=== PATIENT | female | born 1990 | race Caucasian/White ===

== ENCOUNTER 2022-02-08 05:46 | Inpatient (IN) | payer OTHER ==
[~2022-02-08] VITALS: Ht 172.7 cm; Wt 99.8 kg
[~2022-02-08 05:46] MED LIST: FEOSOL325 MG PO
[2022-02-08 06:50] LABS: HEMOGLOBIN 11.8 gm/dl (12.3-15.3); RED BLOOD COUNT 3.76 M/UL (4.00-5.10); WHITE BLOOD COUNT 11.8 K/UL (4.5-11.0)
[2022-02-08] MEDS ORDERED: IBUPROFEN600 MG PO (13:24)
[2022-02-08] MEDS ORDERED: COLACE 100MG C100 MG PO (13:24)
[2022-02-09 05:46] LABS: HEMOGLOBIN 10.7 gm/dl (12.3-15.3)
== END 2022-02-09 16:12 | disposition home or self-care (01) | DRG 807 ==
LOC: OB 05:46
PROVIDERS: Obstetrics & Gynecology; ADMIT Obstetrics & Gynecology
PROC: 10E0XZZ Delivery of Products of Conception, External Approach (ICD-10-PCS; principal; 2022-02-08)
PROC: 0HQ9XZZ Repair Perineum Skin, External Approach (ICD-10-PCS; 2022-02-08)
PROC: 4A1HXCZ Monitoring of Products of Conception, Cardiac Rate, External Approach (ICD-10-PCS; 2022-02-08)
PROC: 3E0234Z Introduction of Serum, Toxoid and Vaccine into Muscle, Percutaneous Approach (ICD-10-PCS; 2022-02-08)
DX: O34.219 Maternal care for unspecified type scar from previous cesarean delivery (principal); Z37.0 Single live birth; O70.0 First degree perineal laceration during delivery; Z3A.39 39 weeks gestation of pregnancy; Z20.822 Contact with and (suspected) exposure to COVID-19; W18.30XA Fall on same level, unspecified, initial encounter; Y92.231 Patient bathroom in hospital as the place of occurrence of the external cause; Z82.0 Family history of epilepsy and other diseases of the nervous system; Z87.440 Personal history of urinary (tract) infections; Z23 Encounter for immunization
CPT/HCPCS: 36415; 81001; 85014; 85018; 85025; 85461; 86850; 86900; 86901; 90707; J2590; J2790; J7120

== ENCOUNTER 2022-02-12 17:34 | Emergency (ER) | payer OTHER ==
[~2022-02-12 17:34] MED LIST changes: +COLACE 100MG C100 MG PO; +IBUPROFEN600 MG PO
== END 2022-02-12 20:53 | disposition home or self-care (01) ==
LOC: ER1 17:34
DX: S30.0XXA Contusion of lower back and pelvis, initial encounter (principal); W19.XXXA Unspecified fall, initial encounter
CPT/HCPCS: 72100; 72220; 99283